=== PATIENT | female | born 1990 | race Caucasian/White ===

== ENCOUNTER → 2016-11-06 | Outpatient (CLI) | payer OTHER ==
[~2016-11-06] MED LIST: PREN-88 PO
[2016-11-06 18:44] LABS: BLOOD UREA NITROGEN 15 mg/dl (7-18); BUN/CREATININE RATIO 17.1 (10-20); CARBON DIOXIDE 25 mmol/L (21-32); CHLORIDE 107 mmol/L (98-107); CHOLESTEROL 114 mg/dl (0-200); CREATININE 0.85 mg/dl (0.60-1.20); GLUCOSE 83 mg/dl (70-99); POTASSIUM 3.6 mmol/L (3.5-5.1); SODIUM 139 mmol/L (136-145); TRIGLYCERIDES 40 mg/dl (0-150); VERY LOW DENSITY LIPOPROT CALC 8 mg/dl
[2016-11-06 18:56] LABS: CHOLESTEROL/HDL RATIO 1.8; HDL CHOLESTEROL 64 mg/dl; LDL CHOLESTEROL CALCULATED 42 mg/dl
== END | disposition home or self-care (01) ==
LOC: C.LABPBG 13:48
PROVIDERS: ATTEND Physician Assistant
DX: Z00.00 Encounter for general adult medical examination without abnormal findings (principal); Z13.21 Encounter for screening for nutritional disorder; R53.83 Other fatigue

== ENCOUNTER → 2016-11-14 | Outpatient (CLI) | payer OTHER | END | disposition home or self-care (01) | LOC: C.PAPS 09:44 | PROVIDERS: ATTEND Physician Assistant | DX: Z12.4 Encounter for screening for malignant neoplasm of cervix (principal) ==

== ENCOUNTER 2017-05-31 17:58 | Emergency (ER) | payer OTHER, BC ==
[~2017-05-31] VITALS: Ht 157.5 cm; Wt 57.8 kg
[2017-05-31 18:09] VITALS: Ht 157.5 cm; Wt 57.8 kg
[2017-05-31] MEDS ORDERED: EFIN1SOL TOP (18:46)
[2017-05-31] MEDS ORDERED: CHOL1000 PO (18:46)
[2017-05-31] MEDS ORDERED: MULT-506 PO (18:46)
[2017-05-31] MEDS ORDERED: ASCA500 PO (18:46)
[2017-05-31] MEDS ORDERED: KETOROLAC TROMETHAMINE 30 MG/ML VIAL IV STA (19:02)
[2017-05-31] MEDS ORDERED: SODIUM CHLORIDE 0.9% 1000ML 1,000 ML IV STA (19:02)
--- NOTE | 2017-05-31 19:06 | EMERGENCY ROOM VISIT NOTE ---
History First contact with patient: 18:44 Chief Complaint: FLANK PAIN Stated Complaint: KIDNEY/BACK PAIN, DIZZINESS, HEADACHE History of Present Illness The patient is a 27 year old female who presents to the Emergency Room with complaints of right flank pain which began approximately 24 hours ago. The patient states the pain seems to be worsening in the right flank, and is now associated with some mild dizziness, lightheadedness, nausea, decreased appetite , and urinary frequency. She states she has had an ongoing headache with the pain as well. The patient denies any recent illness or fever. She states she has noticed some urinary frequency, but denies any hematuria, dysuria, or urinary hesitancy. She states that bending towards the left makes the flank pain on the right worse. She denies any unusual or excessive activity since before the pain began, but she does have 2 small children at home who are 4 and 1-1/2 years old. The patient is currently on her menstrual cycle, and states she is experiencing some abdominal cramping, but is uncertain if she is experiencing any worsening pain unusual for her menstrual cycle. She states the pain feels very deep within the right flank, and she has been taking ibuprofen and Excedrin without any relief. The patient denies a history of kidney stones or urinary tract infections. She denies any pain radiating down into the legs, and denies any paresthesias. She denies any chest pain or dyspnea. The pain did not begin after eating. Review of Systems A complete 10 point review of systems was reviewed with the patient with pertinent positives and negatives as per history of present illness. All else were negative. Past Medical/Surgical History None Social History Smoking Status: Never Smoker Smokeless Tobacco Use: No Alcohol Use: none Drug Use: none Marital Status: in relationship Housing Status: lives with family Occupation Status: employed Current/Historical Medications Scheduled Ascorbic Acid (Vitamin C), 500 MG PO DAILY Cholecalciferol (Vitamin D3), 1,000 INTER.UNIT PO DAILY Cyclobenzaprine Hcl (Flexeril), 5 MG PO TID Efinaconazole (Jublia), 1 DOSE TOP BID Multivitamin (Multivitamin), 1 TAB PO DAILY Physical Exam Vital Signs Date Time Temp Pulse Resp B/P (MAP) Pulse Ox O2 Delivery O2 Flow Rate FiO2 05/31/17 19:15 58 20 100/65 100 05/31/17 18:09 36.9 84 20 137/79 100 Room Air Physical Exam VITALS: Vitals are noted on the nurse's note and reviewed by myself. Vital signs stable. GENERAL: This is a 27-year-old white female, in no acute distress, nondiaphoretic, well-developed well-nourished. SKIN: The skin was without rashes, erythema, edema, or bruising. There is no tenting of the skin. Capillary reflex less than 2 seconds. HEAD: Normocephalic atraumatic. EARS: External auditory canals clear, tympanic membranes pearly allison without erythema or effusion bilaterally. EYES: Pupils equal round and reactive to light and accommodation. Conjunctivae without injection, sclerae without icterus. Extraocular movements intact. NOSE: Patent, turbinates without inflammation or discharge. No sinus tenderness. MOUTH: Mucous membranes moist. Tonsils are not enlarged. Pharynx without erythema or exudate. Uvula midline. Airway patent. Tongue does not deviate. NECK: Supple without nuchal rigidity. No lymphadenopathy. No thyromegaly. Cervical spine is nontender. No JVD. HEART: Regular rate and rhythm without murmurs gallops or rubs. LUNGS: Clear to auscultation bilaterally without wheezes, rales or rhonchi. No dullness to percussion. No retractions or accessory muscle use. ABDOMEN: Positive bowel sounds x 4. Normal tympanic percussion. Mild suprapubic tenderness and right-sided abdominal pain. Soft, otherwise nontender , without masses or organomegaly. Childers sign negative. No guarding or rebound tenderness. Positive CVA tenderness on the right. MUSCULOSKELETAL: No muscle atrophy, erythema, or edema noted. Full range of motion without joint tenderness in all extremities. No tenderness to palpation. Normal gait. Strength 5/5 throughout. NEURO: Patient was alert and oriented to person place and time. Normal sensation to light and sharp touch. Deep tendon reflexes 2+ throughout. No focal neurological deficits. Medical Decision & Procedures ER Provider Diagnostic Interpretation: KUB CLINICAL HISTORY: 27 years-old Female presenting with right flank pain. TECHNIQUE: Single supine view of the abdomen was obtained. COMPARISON: 10/02/2007. FINDINGS: Nonobstructive bowel gas pattern. No gross pneumoperitoneum. Allowing for bowel gas and stool, no calcifications to suggest nephrolithiasis. No calcifications over the courses of the ureters. Osseous structures normal. Lung bases clear. IMPRESSION: 1. No acute intra-abdominal pathology. No radiographic evidence of nephrolithiasis. Electronically signed by: Fox Johnson M.D. 05/31/2017 7:46 PM Dictated Date/Time: 05/31/2017 7:45 PM Laboratory Results 05/31/17 19:05 Red Blood Count 4.58, Mean Corpuscular Volume 88.2, Mean Corpuscular Hemoglobin 30.1, Mean Corpuscular Hemoglobin Concent 34.2, Mean Platelet Volume 10.0, Neutrophils (%) (Auto) 55.0, Lymphocytes (%) (Auto) 38.5, Monocytes (%) (Auto) 5.3, Eosinophils (%) (Auto) 0.8, Basophils (%) (Auto) 0.2, Neutrophils # (Auto) 2.72, Lymphocytes # (Auto) 1.90, Monocytes # (Auto) 0.26, Eosinophils # (Auto) 0.04, Basophils # (Auto) 0.01 05/31/17 19:05 Test 05/31/17 19:02 05/31/17 19:05 Urine Color YELLOW Urine Appearance CLEAR (CLEAR) Urine pH 6.5 (4.5-7.5) Urine Specific Dola 1.005 (1.000-1.030) Urine Protein NEG (NEG) Urine Glucose (UA) NEG (NEG) Urine Ketones 1+ (NEG) Urine Occult Blood NEG (NEG) Urine Nitrite NEG (NEG) Urine Bilirubin NEG (NEG) Urine Urobilinogen NEG (NEG) Urine Leukocyte Esterase NEG (NEG) Urine Test NEG (NEG) White Blood Count 4.94 K/uL (4.8-10.8) Red Blood Count 4.58 M/uL (4.2-5.4) Hemoglobin 13.8 g/dL (12.0-16.0) Hematocrit 40.4 % (37-47) Mean Corpuscular Volume 88.2 fL (80-100) Mean Corpuscular Hemoglobin 30.1 pg (25-34) Mean Corpuscular Hemoglobin Concent 34.2 g/dl (32-36) Platelet Count 224 K/uL (130-400) Mean Platelet Volume 10.0 fL (7.4-10.4) Neutrophils (%) (Auto) 55.0 % Lymphocytes (%) (Auto) 38.5 % Monocytes (%) (Auto) 5.3 % Eosinophils (%) (Auto) 0.8 % Basophils (%) (Auto) 0.2 % Neutrophils # (Auto) 2.72 K/uL (1.4-6.5) Lymphocytes # (Auto) 1.90 K/uL (1.2-3.4) Monocytes # (Auto) 0.26 K/uL (0.11-0.59) Eosinophils # (Auto) 0.04 K/uL (0-0.5) Basophils # (Auto) 0.01 K/uL (0-0.2) RDW Standard Deviation 39.0 fL (36.4-46.3) RDW Coefficient of Variation 12.2 % (11.5-14.5) Immature Granulocyte % (Auto) 0.2 % Immature Granulocyte # (Auto) 0.01 K/uL (0.00-0.02) Anion Gap 8.0 mmol/L (3-11) Est Creatinine Clear Calc Drug Dose 76.2 ml/min Estimated GFR () 105.1 Estimated GFR (Non- 90.7 BUN/Creatinine Ratio 16.2 (10-20) Calcium Level 9.1 mg/dl (8.5-10.1) Total Bilirubin 0.3 mg/dl (0.2-1) Aspartate Amino Transf (AST/SGOT) 17 U/L (15-37) Alanine Aminotransferase (ALT/SGPT) 32 U/L (12-78) Alkaline Phosphatase 43 U/L (45-117) Total Protein 8.3 gm/dl (6.4-8.2) Albumin 4.6 gm/dl (3.4-5.0) Globulin 3.7 gm/dl (2.5-4.0) Albumin/Globulin Ratio 1.3 (0.9-2) Medications Administered Medications (Trade) Dose Ordered Sig/Clint Route Start Time Stop Time Status Last Admin Dose Admin Sodium Chloride 1,000 ml @ 999 mls/hr Q1H1M STAT IV 05/31/17 19:02 05/31/17 20:02 DC 05/31/17 19:13 999 MLS/HR Ketorolac Tromethamine (Toradol Inj) 30 mg NOW STAT IV 05/31/17 19:02 05/31/17 19:03 DC 05/31/17 19:12 30 MG Cyclobenzaprine HCl (FLEXERIL 10MG Home Pack) 1 homepack UD STAT PO 05/31/17 20:03 05/31/17 20:04 DC 05/31/17 20:03 1 HOMEPACK ED Course The patient was seen and evaluated as above. IV access obtained, labs drawn. The patient was given 1 L normal saline solution, 30 mg Toradol for her pain and symptoms. KUB reviewed by myself and radiologist as above. Labs reviewed. The patient was reassessed. She reports moderate improvement in her symptoms. I had a long discussion with the patient at bedside regarding ongoing care. Discharge instructions reviewed, the patient was discharged home in good condition. Medical Decision This is a 27-year-old female patient who presents to the emergency department today complaining of right flank pain with associated urinary frequency, dizziness, lightheadedness, and decreased appetite. The patient states the symptoms have been ongoing for approximately 24 hours. The patient's states the patient had been wrestling around and lifting her son in the air last evening prior to the pain beginning. The patient states she does not recall having pain prior to this incident, but states this pain feels different than on previous pulled muscle she has experienced. Workup here in the emergency department was around negative. KUB did not show any obvious signs of nephrolithiasis. There is no leukocytosis, anemia, thrombocytopenia on CBC. CMP shows no significant renal, hepatic, electrolyte abnormalities. The patient's urinalysis is positive for 1+ ketones, but there is no blood, white blood cells, bacteria, or nitrates. There is no obvious signs of infection. The patient does admit to starting a keto diet recently, which I suspect correlates with the 1+ ketones in the patient's urine. With these findings, I discussed with the patient and her that I suspect a muscular etiology of the patient's symptoms. I did offer her further imaging with CT scan or ultrasound, but after discussing the benefits versus risks and my low suspicion for any positive findings due to the patient's workup and laboratory results, the patient declined further testing and states "I want to go home". Patient's symptoms did improve here in the emergency department with IV Toradol. She will be given a prescription and home pack for cyclobenzaprine to take at home and was advised to get plenty of rest and avoid over exertion over the weekend. The patient was agreeable to this. She was encouraged to follow-up outpatient with her primary care provider. She was given strict return precautions. Etiologies such as renal colic, musculoskeletal, appendicitis, diverticulitis, mesenteric ischemia, aortic pathology, infections, inflammatory bowel disease, PUD, biliary pathology, UTI, as well as others were entertained. Medication Reconcilliation Current Medication List: was personally reviewed by me Blood Pressure Screening Patient's blood pressure: Normal blood pressure Impression Primary Impression: Right flank pain Departure Information Dispostion Home / Self-Care Condition GOOD Prescriptions Cyclobenzaprine Hcl (FLEXERIL) 5 Mg Tab 5 MG PO TID, #15 TAB PRN Prov: Kaylynn Quintero, SUSANNAH 05/31/17 Referrals Carmen Grey DO (PCP) Patient Instructions ED Flank Pain Uncertain Cause, My [facility] Additional Instructions You were seen in the emergency department today for right flank pain. As discussed, all labs and KUB x-ray were negative for acute causes of your pain. I suspect a muscular etiology of your symptoms. Ibuprofen(Motrin, Advil) may be used for fever or pain. Use 600mg every six hours as needed. Take with food. Avoid using more than 2400mg in a 24 hour period. Do not use 2400mg per day for more than three consecutive days without physician direction. Prolonged inappropriate use can lead to stomach upset or ulcers. (AND/OR) Acetaminophen(Tylenol) may be used for fever or pain. Use 1000mg every six hours as needed. Avoid using more than 3000mg in a 24 hour period. You have been prescribed Flexeril (cyclobenzaprine) 1-2 tabs orally, three times per day. Do NOT exceed 30 mg (6 tabs) per day. Take your first dose at bedtime as it can make you drowsy. Always take all medications as prescribed. *Note: Flexeril homepack is 10mg tablets. Take 1/2 to 1 tablet orally as needed. Rx is for 5mg tablets. Use ice and/or heat to help with discomfort. Drink plenty of fluids and stay well-hydrated. Follow-up with your PCP in 2-3 days for re-evaluation of your symptoms. Please monitor for worsening pain, fever, blood in your urine, painful urination , fevers, chills, or other concerning symptoms. If these occur, return immediately to the emergency department.
[2017-05-31 19:18] LABS: BASO % 0.2 %; BASO ABS # 0.01 K/uL (0-0.2); EOS % 0.8 %; EOS ABS # 0.04 K/uL (0-0.5); HEMATOCRIT 40.4 % (37-47); HEMOGLOBIN 13.8 g/dL (12.0-16.0); IG# 0.01 K/uL (0.00-0.02); LYMPH % 38.5 %; MEAN CELL VOLUME 88.2 fL (80-100); MEAN CORPUSCULAR HEMOGLOBIN 30.1 pg (25-34); MEAN CORPUSCULAR HGB CONC 34.2 g/dl (32-36); MONO % 5.3 %; MONO ABS # 0.26 K/uL (0.11-0.59); NEUT ABS # 2.72 K/uL (1.4-6.5); PLATELET COUNT 224 K/uL (130-400); RED CELL DISTRIBUTION WIDTH CV 12.2 % (11.5-14.5); WHITE BLOOD COUNT 4.94 K/uL (4.8-10.8)
[2017-05-31 19:42] LABS: ALBUMIN 4.6 gm/dl (3.4-5.0); CALCIUM 9.1 mg/dl (8.5-10.1); CREATININE 0.87 mg/dl (0.60-1.20); POTASSIUM 3.6 mmol/L (3.5-5.1)
[2017-05-31 19:45] LABS: TOTAL PROTEIN 8.3 gm/dl (6.4-8.2)
--- NOTE | 2017-05-31 19:47 | DIAGNOSTIC IMAGING REPORT ---
KUB CLINICAL HISTORY: 27 years-old Female presenting with right flank pain. TECHNIQUE: Single supine view of the abdomen was obtained. COMPARISON: 10/02/2007. FINDINGS: Nonobstructive bowel gas pattern. No gross pneumoperitoneum. Allowing for bowel gas and stool, no calcifications to suggest nephrolithiasis. No calcifications over the courses of the ureters. Osseous structures normal. Lung bases clear. IMPRESSION: 1. No acute intra-abdominal pathology. No radiographic evidence of nephrolithiasis. Electronically signed by: Fox Johnson M.D. 05/31/2017 7:46 PM Dictated Date/Time: 05/31/2017 7:45 PM
[2017-05-31] MEDS ORDERED: FLEXERIL HOME PACK 10 MG VIAL PO STA (20:03)
[2017-05-31] MEDS ORDERED: CYCL5TAB PO (20:06)
[2017-05-31 20:19] VITALS: BP 100/65; PULSE 58; TEMP 36.9; O2SAT 100
== END 2017-05-31 20:19 | disposition home or self-care (01) ==
LOC: C.EDB 18:00
DX: R10.9 Unspecified abdominal pain (principal)

== ENCOUNTER → 2017-07-03 | Outpatient (CLI) | payer OTHER, BC ==
[~2017-07-03] MED LIST changes: +ASCA500 PO; +CHOL1000 PO; +EFIN1SOL TOP; +MULT-506 PO; -PREN-88 PO
[2017-07-03 17:01] LABS: HEMATOCRIT 35.5 % (37-47); HEMOGLOBIN 12.4 g/dL (12.0-16.0); MEAN CELL VOLUME 87.7 fL (80-100); MEAN CORPUSCULAR HEMOGLOBIN 30.6 pg (25-34); MEAN CORPUSCULAR HGB CONC 34.9 g/dl (32-36); MEAN PLATELET VOLUME 10.1 fL (7.4-10.4); PLATELET COUNT 173 K/uL (130-400); RED CELL DISTRIBUTION WIDTH CV 12.5 % (11.5-14.5); RED CELL DISTRIBUTION WIDTH SD 40.3 fL (36.4-46.3)
[2017-07-03 17:20] LABS: ALBUMIN 4.2 gm/dl (3.4-5.0); BLOOD UREA NITROGEN 11 mg/dl (7-18); CALCIUM 8.7 mg/dl (8.5-10.1); CARBON DIOXIDE 24 mmol/L (21-32); CREATININE 0.69 mg/dl (0.60-1.20); GLUCOSE 74 mg/dl (70-99); POTASSIUM 3.4 mmol/L (3.5-5.1); SODIUM 138 mmol/L (136-145)
[2017-07-03 17:22] LABS: BASO % 0.2 %; BASO ABS # 0.01 K/uL (0-0.2); EOS % 0.7 %; EOS ABS # 0.03 K/uL (0-0.5); LYMPH % 54.6 %; LYMPH ABS # 2.24 K/uL (1.2-3.4); MONO % 6.3 %; MONO ABS # 0.26 K/uL (0.11-0.59); NEUT % 38.2 %; NEUT ABS # 1.56 K/uL (1.4-6.5)
[2017-07-03 17:30] LABS: ALKALINE PHOSPHATASE 42 U/L (45-117); ALT/SGPT 29 U/L (12-78); AST/SGOT 16 U/L (15-37); TOTAL PROTEIN 7.2 gm/dl (6.4-8.2)
== END | disposition home or self-care (01) ==
LOC: C.LABPBG 14:53
PROVIDERS: ATTEND Physician Assistant
DX: R51 Headache (principal)

== ENCOUNTER 2019-04-06 07:14 | Inpatient (IN) ==
[2019-04-06] MEDS ORDERED: OXYTOCIN 30 UNITS/500 ML BAG IV PRN ×3 (08:31→19:03)
--- NOTE | 2019-04-06 08:36 | History & Physical Report ---
Date of Service April 06, 2019 Assessment & Plan (1) : PROM, discussed starting pitocin vs conservative management. Patient elects for pitocin. She will likely want an epidural. History of Present Illness Chief Complaint: leaking fluid Primary Care Provider: NO PCP 29yo @ 38 06/06 with gush of clear fluid at 0530 this morning. Having rare ctx. + movement. No vaginal bleeding. uncomplicated. Allergies Allergy/AdvReac Type Severity Reaction Status Date / Time Penicillins Allergy Intermediate rash Verified 04/03/19 16:18 Home Medications Home Medications Medication Instructions Recorded Confirmed Type docusate sodium 100 mg PO DAILY 10/14/18 04/03/19 History prenat.vits,gayathri,[id number] 1 tab PO DAILY 10/15/18 04/03/19 History polyethylene glycol 3350 PO 01/02/19 04/03/19 History ferrous sulfate PO 02/19/19 04/03/19 History ondansetron HCl PO 04/03/19 04/03/19 History Patient History Medical History (Updated 03/24/19 @ 09:15 by Israel Fallon Jr, MD, FACOG) Abnormal EKG (Inactive) Dehydration (Inactive) Encounter for examination following treatment at hospital (Inactive) Encounter for anatomic survey Fatigue (Inactive) Headache (Inactive) History of anemia Hyperemesis gravidarum (Resolved) (Acute) Surgical History (Updated 11/01/18 @ 16:00 by Destinee Chavez) Breast enlargement H/O oral surgery History of wisdom tooth extraction Family History (Updated 11/01/18 @ 16:07 by Destinee Chavez) Father Environmental allergies Hypertension Sister No problems noted. Son Environmental allergies Grandfather Environmental allergies Hypertension Myocardial infarction Aunt Asthma Gestational diabetes Kidney stone Breast cancer Mother Depression Hypertension Grandmother Gestational diabetes Ovarian cancer Other Anemia Cardiac disorder Endometriosis Heart murmur Hypercholesterolemia Multiple gestation No significant family history Ovarian cyst Prostate cancer Thyroid disease Social History (Updated 11/01/18 @ 16:08 by Destinee Chavez) Preferred Language: Macedonian Beliefs That Will Affect Care: None marital status: Current Living Situation: Spouse and Family Current Living Situation Comment: sons ages 6 and 3 current occupational status: employed Feels Safe at Home: Yes and No Smoking Status: Never smoker Second Hand Exposure: No ; Hx Alcohol Use: No Hx Substance Use: No Review of Systems All systems reviewed & are unremarkable except as noted in HPI & below Physical Exam Physical Exam: FHT Cat 1 [place] Rare SVE: 4-5/50/-2 Nitrizine +, actively leaking fluid, grossly ruptured Constitutional: WD/WN, vitals as above Respiratory: normal respiratory effort, lungs clear to auscultation no respiratory distress Cardiovascular: Rate/Rhythm: regular rate and regular rhythm Gastrointestinal (Abdomen): Inspection/Auscultation: abdomen normal to inspection Percussion/Palpation: abdomen soft; abdomen nontender Gravid. No s/s chorio or abruption. Skin: no rashes, warm and dry Psychiatric: A+Ox3, euthymic affect Results & Data Vital Signs (Past 12 Hours) Vital Signs Temp Pulse Resp BP 04/06/19 07:22 88 128/65 04/06/19 07:19 36.7 C 18 (1) Weeks of gestation: 13 weeks Qualified Code(s): Z3A.13 - 13 weeks gestation of
[2019-04-06] MEDS: LACTATED RINGER'S 1,000 ML IV PRN ×3 (08:50→18:13)
[2019-04-06 09:10] LABS: Hematocrit (blood only) 32.6 % (37-47); Hemoglobin 10.9 g/dL (12.0-16.0); Mean Corpuscular Hemoglobin 32.2 pg (25-34); Mean Corpuscular Volume 96.2 fL (80-100); Mean Platelet Volume 9.9 fL (7.4-10.4); Platelet Count 150 K/uL (130-400); RDW Coefficient of Variation 13.1 % (11.5-14.5); RDW Standard Deviation 45.1 fL (36.4-46.3); Red Blood Count 3.39 M/uL (4.2-5.4); White Blood Count 9.41 K/uL (4.8-10.8)
[2019-04-06 09:11] LABS: Mean Corpuscular Hgb Conc 33.4 g/dL (32-36)
--- NOTE | 2019-04-06 13:26 | Obstetrical Progress Note ---
Date of Service April 06, 2019 Subjective Comfortable, but contractions have increased with pitocin. Feels frustrated because active labor has not kicked in yet. FHT Cat 1 [place] Q 2 SVE: -/0 Discussed that baby has dropped in pelvis, this is promising. Anticipate . Results & Data Vital Signs (Past 12 Hours) Vital Signs Temp Pulse Resp BP 04/06/19 12:06 90 109/62 04/06/19 12:05 18 04/06/19 11:04 81 103/59 L 04/06/19 10:02 88 114/66 04/06/19 09:29 20 04/06/19 09:00 20 04/06/19 07:22 88 128/65 04/06/19 07:19 36.7 C 18 PG Care Time/CCT Total # of Minutes Spent Total Time Spent with Patient: Total time spent is greater than 50% in coordination of care (as documented) at patient's floor/unit and/or counseling patient:
[2019-04-06] MEDS ORDERED: ePHEDrine sulfate 50 MG/ML AMP ONE (16:59)
[2019-04-06] MEDS ORDERED: fentaNYL citrate 100 MCG/2 ML VIAL ONE (16:59)
[2019-04-06] MEDS ORDERED: BUPIVACAINE 0.25% 30 ML VIAL ONE (16:59)
[2019-04-06] MEDS ORDERED: fentaNYL 2MCG/ML ROPIV 1.25MG/ML 100 ML BAG EPI ONE (17:00)
--- NOTE | 2019-04-06 17:15 | Anesthesiology Consultation ---
Date of Service April 06, 2019 Assessment & Plan Chart Review Chart Review: Acceptable Risk for Surgery, Patient NOT seen in Pre Admission Testing and Acceptable Risk for Labor Epidural Consults Requested none ASA ASA2 Proposed Anesthesia Anesthesia Type: General and Labor Epidural Risk / Benefits Reviewed With: PT / POA / Parent / Guardian, Accepts Plan and Informed Consent Obtained History Height/Weight Height: 5 ft 2.5 in Weight: 80.649 kg Allergies Allergy/AdvReac Type Severity Reaction Status Date / Time Penicillins Allergy Intermediate rash Verified 04/06/19 09:51 Medications Home Medications Medication Instructions Recorded Confirmed Last Taken docusate sodium 100 mg PO DAILY 10/14/18 04/06/19 Unknown prenat.vits,gayathri,[id number]-brjtz 1 tab PO DAILY 10/15/18 04/06/19 04/05/19 Active Medications Generic Name Dose Route Start Last Admin Trade Name Freq PRN Reason Stop Dose Admin Lactated Ringer's 1,000 mls @ 125 mls/hr 04/06/19 08:31 04/06/19 16:51 Lr IV 04/08/19 08:30 999 mls/hr .Q8H PRN Infusion L&D Protocol Protocol Oxytocin 30 units in 500 mls @ 13 mls/hr 04/06/19 08:31 04/06/19 16:52 Pitocin IV 05/06/19 08:30 0.78 units/hr .Q24H PRN 13 mls/hr Labor Induction/Augmentation Titration Protocol 0.78 UNITS/HR NPO Date Last Intake of Fluids: 04/06/19 Time Last Intake of Fluids: 16:00 Date Last Intake of Solids: 04/05/19 Time Last Intake of Solids: 23:00 Past Medical History Medical History Abnormal EKG (Inactive) Dehydration (Inactive) Encounter for examination following treatment at hospital (Inactive) Encounter for anatomic survey Fatigue (Inactive) Headache (Inactive) History of anemia Hyperemesis gravidarum (Resolved) (Acute) Exercise / Class Metabolic Activity II 4-5 Yardwork/Stairs/Walk up hill Past Family History Family History Father Environmental allergies Hypertension Sister No problems noted. Son Environmental allergies Grandfather Environmental allergies Hypertension Myocardial infarction Aunt Asthma Gestational diabetes Kidney stone Breast cancer Mother Depression Hypertension Grandmother Gestational diabetes Ovarian cancer Other Anemia Cardiac disorder Endometriosis Heart murmur Hypercholesterolemia Multiple gestation No significant family history Ovarian cyst Prostate cancer Thyroid disease Past Surgical History Surgical History Breast enlargement H/O oral surgery History of wisdom tooth extraction Past Anesthesia History No Hx of Anesthesia Complications and No Family Hx of Anesthesia Complications History of PONV No Hx of PONV and No Hx of Motion Sickness Social History Smoking Status: Never smoker Hx Alcohol Use: No Hx Substance Use: No Physical Exam Vital Signs Last Vital Signs Temp 36.8 C 04/06/19 17:03 Pulse 79 04/06/19 16:51 Resp 18 04/06/19 17:03 BP 107/62 04/06/19 16:51 Constitutional + obese ENMT Mouth: no dentition abnormality Thyromental Distance: < 3.5 Finger Breadths Mallampati Class: II Neck normal visual inspection and trachea midline; neck extension not limited Respiratory normal respiratory effort Auscultation: lungs clear to auscultation bilaterally Cardiovascular Rate/Rhythm: regular rate and regular rhythm Heart Sounds: no murmur Musculoskeletal Spine: lumbar spine normal to inspection; normal cervical ROM Neurologic moves all extremities Motor/Sensory: no sensory deficit Psychiatric Orientation: alert and oriented x 3 Testing Laboratory Results 04/06/19 08:56
[2019-04-06] MEDS ORDERED: fentaNYL 2MCG/ML ROPIV 1.25MG/ML 100 ML BAG EPI PRN (17:47)
[2019-04-06] MEDS ORDERED: NALOXONE HCL 1 MG in SODIUM CHLORIDE 0.9% 1000ML 1,000 ML IV PRN (17:47)
[2019-04-06] MEDS ORDERED: ePHEDrine sulfate 50 MG/ML AMP IV PRN (17:47)
[2019-04-06] MEDS ORDERED: PROMETHAZINE HCL 25 MG in SODIUM CHLORIDE 0.9% 50 ML IV PRN (17:47)
[2019-04-06] MEDS ORDERED: NALBUPHINE HCL INJ 10 MG/ML AMP IV PRN (17:47)
[2019-04-06] MEDS ORDERED: ONDANSETRON INJ 2 MG/ML 2 ML VIAL IV PRN (17:47)
[2019-04-06] MEDS ORDERED: NALOXONE HCL 0.4 MG/1 ML VIAL/CARP IV PRN (17:47)
[2019-04-06] MEDS ORDERED: DiphenhydrAMINE HCL 50 MG/ML VIAL IV PRN (17:47)
--- NOTE | 2019-04-06 18:14 | Obstetrical Progress Note ---
Date of Service April 06, 2019 Subjective Comfortable with epidural now. FHT Cat 1, with early decels [place] Q 2 SVE 7/100/0. Bloody show. Results & Data Vital Signs (Past 12 Hours) Vital Signs Temp Pulse Resp BP Pulse Ox 04/06/19 18:12 90 98 04/06/19 18:11 87 108/57 L 04/06/19 18:09 84 109/58 L 04/06/19 18:07 94 H 105/56 L 04/06/19 18:05 88 109/60 04/06/19 18:03 82 109/61 04/06/19 18:02 89 126/79 98 04/06/19 17:59 96 H 105/64 04/06/19 17:57 85 104/63 100 04/06/19 17:55 94 H 101/59 L 04/06/19 17:53 93 H 100/57 L 04/06/19 17:52 92 H 99 04/06/19 17:51 90 108/55 L 04/06/19 17:50 100 H 109/56 L 04/06/19 17:47 93 H 93/53 L 97 04/06/19 17:45 88 91/53 L 04/06/19 17:43 86 91/53 L 04/06/19 17:42 97 H 98/56 L 96 04/06/19 17:39 91 H 109/62 04/06/19 17:37 92 H 108/62 97 04/06/19 17:32 98 H 97 04/06/19 17:27 112 H 99 04/06/19 17:22 99 H 99 04/06/19 17:17 109 H 100 04/06/19 17:16 18 04/06/19 17:03 36.8 C 18 04/06/19 16:51 79 107/62 04/06/19 15:36 18 04/06/19 14:46 92 H 122/63 04/06/19 14:45 36.7 C 18 04/06/19 14:00 18 04/06/19 13:24 18 04/06/19 12:06 90 109/62 04/06/19 12:05 18 04/06/19 11:04 81 103/59 L 04/06/19 10:02 88 114/66 01/05/20 09:29 20 04/06/19 09:00 20 04/06/19 07:22 88 128/65 04/06/19 07:19 36.7 C 18 PG Care Time/CCT Total # of Minutes Spent Total Time Spent with Patient: Total time spent is greater than 50% in coordination of care (as documented) at patient's floor/unit and/or counseling patient:
--- NOTE | 2019-04-06 18:54 | Delivery Summary ---
Vaginal Delivery Summary Date of Service April 06, 2019 Vaginal Delivery Summary Vaginal Delivery Summary: Pre-delivery diagnoses: 29yo @ 38 3/7, PROM Post-delivery diagnoses: same Procedure: spontaneous vaginal delivery, repair of 1st degree perineal laceration Surgeon: Gretchen lAex DO Complications: none Findings: Viable female . Apgars: 8/10. Weight pending, please see nursery records. Estimated blood loss: 300ml Description of delivery: The patient progressed to complete and with epidural anesthesia. She then pushed once. She spontaneously vaginally delivered a viable from the cephalic presentation. The head delivered in MARTA position. The anterior shoulder delivered, followed by the posterior shoulder, followed by the body. The baby was placed on mother's abdomen and a spontaneous cry was heard. Delayed cord clamping was employed, and the cord was doubly clamped and cut. Cord blood was obtained for public donation, and a small amount of cord blood was obtained for lab. The placenta was delivered spontaneously intact with a 3-vessel cord. The uterus and vagina were swept of clots and debris. IV pitocin was given. The uterus became firm. The cervix, vagina, and perineum were inspected and a small 1st degree perineal laceration was noted and repaired with 3-0 vicryl in standard fashion. Excellent hemostasis was observed. The mother and baby are recovering in stable and good condition in the room. Sponge, needle, and instrument counts were correct x 2. Gretchen Alex DO FACG
[2019-04-06] MEDS ORDERED: DIPHTHERIA/TETANUS/PERTUSSIS 0.5 ML SYR/VIAL IM ONE (19:03)
[2019-04-06] MEDS ORDERED: bisacodyL 10 MG SUPP PR PRN (19:03)
[2019-04-06] MEDS ORDERED: ACETAMINOPHEN 325 MG TAB PO PRN (19:03)
[2019-04-06] MEDS ORDERED: BENZOCAINE 20% AER SPR 82.5 GM CAN EXT PRN (19:03)
[2019-04-06] MEDS ORDERED: OXYCODONE/ACETAMINOPHEN 5mg/325mg TAB PO PRN (19:03)
[2019-04-06] MEDS ORDERED: HYDROCORTISONE ACETATE 25 MG SUPP PR PRN (19:03)
[2019-04-06] MEDS ORDERED: SUPERCREAM 0.870% 15 GM JAR EXT PRN (19:03)
--- NOTE | 2019-04-06 19:52 | Anesthesia Procedure Note ---
Date of Service April 06, 2019 Anesthesia Post Epidural Note Vital Signs Vital Signs: Temp Pulse Resp BP Pulse Ox 36.8 C 82 18 98/53 L 98 04/06/19 17:03 04/06/19 19:49 04/06/19 17:16 04/06/19 19:49 04/06/19 18:37 Notes Mental Status: alert / awake / arousable Nausea / Vomiting: adequately controlled Pain: adequately controlled Airway Patency, RR, SpO2: stable & adequate BP & HR: stable & adequate Hydration State: stable & adequate Neuraxial Anesthesia: was administered and sensory block is resolving Anesthetic Complications: no major complications apparent Epidural: Removed without complications and With tip intact
[2019-04-06] MEDS ORDERED: DOCUSATE SODIUM 100 MG CAP PO SCH (21:00)
[2019-04-06] MEDS: IBUPROFEN 600 MG TAB PO PRN (22:15)
[2019-04-07] MEDS: IBUPROFEN 600 MG TAB PO PRN ×4 (03:32→16:38)
[2019-04-07 06:47] LABS: Hematocrit (blood only) 30.5 % (37-47); Hemoglobin 10.5 g/dL (12.0-16.0)
--- NOTE | 2019-04-07 06:48 | Obstetrical Progress Note ---
Date of Service April 07, 2019 Assessment & Plan (1) : PPD#1 doing well, would like to go home today. Delivered at 6:45p last night. DC instructions reviewed, followup PP 6w. Weeks of gestation: 13 weeks Qualified Code(s): Z3A.13 - 13 weeks gestation of Subjective Ambulation: ambulating normally Voiding: no voiding problems Diet Tolerance:: regular diet Lochia:: Moderate PPD#1 doing well. Review of Systems All systems reviewed & are unremarkable except as noted in HPI & below Physical Exam Constitutional WD/WN, vitals as above no acute distress Respiratory normal respiratory effort Cardiovascular Rate/Rhythm: regular rate and regular rhythm Gastrointestinal (Abdomen) Inspection/Auscultation: abdomen normal to inspection; abdomen not distended Percussion/Palpation: abdomen soft Genitourinary OB Exam Abdomen: + fundal height Fundus: + firm; not tender Results & Data Vital Signs (Past 12 Hours) Vital Signs Temp Pulse Pulse Resp BP BP 04/07/19 04:00 36.6 C 79 17 103/66 04/07/19 00:15 36.8 C 93 H 20 101/64 04/06/19 21:55 37.0 C 90 20 109/69 04/06/19 21:11 92 H 111/57 L 04/06/19 20:56 90 116/59 L 04/06/19 20:41 83 106/56 L 04/06/19 20:27 97 H 113/68 04/06/19 20:15 36.4 C L 04/06/19 20:11 82 96/52 L 04/06/19 19:56 83 96/54 L 04/06/19 19:49 82 98/53 L 04/06/19 19:42 198/119 H 04/06/19 19:11 93 H 114/65 04/06/19 18:57 88 106/60
[2019-04-07] MEDS ORDERED: PRENATAL VITAMIN 1 TAB PO SCH (08:00)
[2019-04-07] MEDS ORDERED: bisacodyL 5 MG TABEC PO SCH (20:00)
== END 2019-04-07 19:25 | disposition home or self-care (01) | DRG 807 ==
LOC: OPB 07:14 → 4S1 07:16 → 4S2 21:35

== ENCOUNTER 2020-12-21 20:19 | Inpatient (IN) ==
[2020-12-21] MEDS ORDERED: OXYTOCIN 30 UNITS/500 ML BAG IV PRN ×2 (21:16→22:00)
[2020-12-21] MEDS ORDERED: LACTATED RINGER'S 1,000 ML IV PRN (21:16)
[2020-12-21 22:11] LABS: Hematocrit (blood only) 32.7 % (37-47); Mean Corpuscular Hemoglobin 31.5 pg (25-34); Mean Corpuscular Hgb Conc 33.6 g/dL (32-36); Mean Corpuscular Volume 93.7 fL (80-100); Mean Platelet Volume 10.2 fL (7.4-10.4); Platelet Count 172 K/uL (130-400); RDW Coefficient of Variation 13.3 % (11.5-14.5); RDW Standard Deviation 45.9 fL (36.4-46.3); Red Blood Count 3.49 M/uL (4.2-5.4); White Blood Count 8.98 K/uL (4.8-10.8)
[2020-12-22] MEDS ORDERED: SUPERCREAM 0.870% 15 GM JAR EXT PRN (02:02)
[2020-12-22] MEDS ORDERED: oxyCODONE/ACETAMINOPHEN 5mg/325mg TAB PO PRN (02:02)
[2020-12-22] MEDS ORDERED: ACETAMINOPHEN W/CODEINE #3 1 TAB PO PRN (02:02)
[2020-12-22] MEDS ORDERED: METHYLERGONOVINE MALEATE 0.2 MG/ML AMP IM ONE (02:02)
[2020-12-22] MEDS ORDERED: OXYTOCIN 30 UNITS/500 ML BAG IV PRN (02:02)
[2020-12-22] MEDS ORDERED: HYDROCORTISONE ACETATE 25 MG SUPP PR PRN (02:02)
[2020-12-22] MEDS ORDERED: DIPHTHERIA/TETANUS/PERTUSSIS 0.5 ML SYR/VIAL IM ONE (02:02)
[2020-12-22] MEDS ORDERED: BENZOCAINE 20% AER SPR 82.5 GM CAN EXT PRN (02:02)
[2020-12-22] MEDS ORDERED: bisacodyL 10 MG SUPP PR PRN (02:02)
[2020-12-22] MEDS ORDERED: METHYLERGONOVINE MALEATE 0.2 MG/ML AMP ONE (02:13)
--- NOTE | 2020-12-22 02:27 | Delivery Summary ---
She is a 4, para 4, blood type is O positive, group B strep negative, due date 12/26/2020. S he was admitted at 39 weeks 3 days. On admission, her cervix was 5 cm dilated. She was having a lot of pelvic pain and discomfort. The baby's estimated weight was on the large side and she requested induction. When she arrived, she was 5+ cm having some contractions, which she did not feel. She was started on Pitocin. She had a good regular pattern about every 2-3 minutes. Membranes were rupture d surgically. Fluid was clear. We continued the Pitocin. She went up and delivered unmedicated, we nt to full dilatation with about 4 pushes, pushed out a live female infant via direct occiput anterio r position over an intact perineum. was suctioned thoroughly through the mouth and the nose. Shoulders were delivered without difficulty. Cord was allowed to pulse for a minute while the infan t was held below the placenta, then it was stripped and the cord was clamped and cut by the father. Cord blood was taken. With IV Pitocin running, the placenta was removed intact and we also gave her a shot of 0.2 mg of Methergine IM. Uterus contracted nicely. Hemostasis was good. Inspection of th e perineum revealed no lacerations at all. Estimated blood loss was 200 mL. Job ID: [id number]
[2020-12-22] MEDS: IBUPROFEN 600 MG TAB PO PRN ×3 (02:46→16:26)
[2020-12-22] MEDS: ACETAMINOPHEN 325 MG TAB PO PRN ×2 (05:23→12:12)
[2020-12-22] MEDS: PRENATAL VITAMIN 1 TAB PO SCH (08:21)
[2020-12-22] MEDS: DOCUSATE SODIUM 100 MG CAP PO SCH ×2 (08:21→19:51)
[2020-12-22 08:44] VITALS: O2SAT 97
[2020-12-23] MEDS: IBUPROFEN 600 MG TAB PO PRN ×2 (00:03→08:10)
[2020-12-23 06:11] LABS: Hematocrit (blood only) 26.1 % (37-47); Hemoglobin 8.5 g/dL (12.0-16.0); Mean Corpuscular Hemoglobin 31.6 pg (25-34); Mean Corpuscular Hgb Conc 32.6 g/dL (32-36); Platelet Count 153 K/uL (130-400); Red Blood Count 2.69 M/uL (4.2-5.4); White Blood Count 7.95 K/uL (4.8-10.8)
[2020-12-23] MEDS: PRENATAL VITAMIN 1 TAB PO SCH (08:10)
[2020-12-23] MEDS: DOCUSATE SODIUM 100 MG CAP PO SCH (08:10)
[2020-12-23 08:45] VITALS: BP 102/67; PULSE 83; TEMP 97.3
--- NOTE | 2020-12-23 09:14 | Obstetrical Progress Note ---
Date of Service December 23, 2020 Assessment & Plan Admission and Anticipated Discharge Date Admission Date: December 21, 2020 Subjective abdomen soft and non tender no calf tenderness ambulating well vaginal bleeding scant hgb 8.5 Results & Data ([facility]) Vital Signs (Past 12 Hours) Vital Signs Temp Pulse Resp BP Pulse Ox 12/23/20 08:41 36.3 C L 83 18 102/67 12/22/20 23:30 36.7 C 76 16 102/69 97
[2020-12-23] MEDS ORDERED: bisacodyL 5 MG TABEC PO SCH (20:00)
== END 2020-12-23 11:05 | disposition home or self-care (01) | DRG 807 ==
LOC: 4S1 20:45 → 4S2 12-22 05:18
DX: O62.3 Precipitate labor; Z3A.39 39 weeks gestation of pregnancy; Z37.0 Single live birth

== ENCOUNTER 2023-05-05 12:48 | Inpatient (IN) ==
[2023-05-05] MEDS ORDERED: LACTATED RINGER'S 1,000 ML IV PRN (13:41)
[2023-05-05] MEDS ORDERED: LIDOCAINE 1% LOCAL 20 ML VIAL INFIL PRN (13:41)
[2023-05-05] MEDS ORDERED: OXYTOCIN 30 UNITS/NSS 30 UNITS/500 ML BAG IV PRN ×3 (13:41→18:45)
[2023-05-05] MEDS ORDERED: SODIUM CHLORIDE 0.9% 250 ML IV PRN (13:55)
[2023-05-05 14:56] LABS: Hematocrit (blood only) 30.6 % (37.0-47.0); Hemoglobin 10.3 g/dl (12.0-16.0); Mean Corpuscular Hemoglobin 31.5 pg (25.0-34.0); Mean Corpuscular Hgb Conc 33.7 g/dL (32.0-36.0); Mean Corpuscular Volume 93.6 fL (80.0-100.0); Mean Platelet Volume 10.7 fL (9.4-12.4); Platelet Count 156 K/uL (130-400); RDW Coefficient of Variation 12.8 % (11.5-14.5); RDW Standard Deviation 43.9 fL (36.4-46.3); Red Blood Count 3.27 M/uL (4.20-5.40); White Blood Count 7.25 K/ul (4.8-10.8)
[2023-05-05] MEDS ORDERED: METHYLERGONOVINE MALEATE 0.2 MG/ML AMP ONE (18:37)
[2023-05-05] MEDS ORDERED: miSOPROStoL 200 MCG TAB ONE (18:40)
[2023-05-05] MEDS ORDERED: ACETAMINOPHEN 325 MG TAB PO PRN (18:45)
[2023-05-05] MEDS ORDERED: oxyCODONE/ACETAMINOPHEN 5mg/325mg TAB PO PRN (18:45)
[2023-05-05] MEDS ORDERED: BENZOCAINE 20% SPRY 85 APPLN/85 GM CAN EXT PRN (18:45)
[2023-05-05] MEDS ORDERED: miSOPROStoL 200 MCG TAB PR ONE (18:45)
[2023-05-05] MEDS ORDERED: bisacodyL 10 MG SUPP PR PRN (18:45)
[2023-05-05] MEDS ORDERED: ACETAMINOPHEN W/CODEINE #3 1 TAB PO PRN (18:45)
[2023-05-05] MEDS ORDERED: HYDROCORTISONE ACETATE 25 MG SUPP PR PRN (18:45)
[2023-05-05] MEDS ORDERED: METHYLERGONOVINE MALEATE 0.2 MG/ML AMP IM ONE (18:45)
--- NOTE | 2023-05-05 18:52 | Delivery Summary ---
Vaginal Delivery Summary Date of Service May 05, 2023 Vaginal Delivery Summary Patient has been followed in our office for care and delivery. She is well dated with a first trimester ultrasound. She comes in in active labor at 39 weeks and 4 days. She is having sporadic contractions cervix is dilated 5+ centimeters. She was given IV Pitocin. Established irregular labor pattern. Did not desire epidural anesthesia. Went to full dilatation pushed out a live male infant via direct occiput anterior position over an intact perineum. Is a very small laceration at 6:00. This was infiltrated with local with epinephrine. A deep suture of 2-0 Vicryl was placed. And a running suture of 2-0 Vicryl was used to approximate the skin edges. Following this bimanual exam removed of a lot of clots from the uterine cavity. She was given IM Methergine. And rectal Cytotec 800 mcg. Uterus contracted nicely estimated blood loss was approximately 250 cc.
[2023-05-05] MEDS: IBUPROFEN 600 MG TAB PO PRN (19:10)
[2023-05-05] MEDS: DOCUSATE SODIUM 100 MG CAP PO SCH (20:49)
[2023-05-06 06:34] LABS: Hemoglobin 10.2 g/dl (12.0-16.0); Mean Platelet Volume 10.9 fL (9.4-12.4); Platelet Count 132 K/uL (130-400); RDW Coefficient of Variation 12.7 % (11.5-14.5); RDW Standard Deviation 43.5 fL (36.4-46.3); Red Blood Count 3.19 M/uL (4.20-5.40); White Blood Count 10.09 K/ul (4.8-10.8)
[2023-05-06] MEDS ORDERED: PRENATAL VITAMIN 1 TAB PO SCH (08:00)
[2023-05-06] MEDS: DOCUSATE SODIUM 100 MG CAP PO SCH (08:31)
[2023-05-06] MEDS: IBUPROFEN 600 MG TAB PO PRN (08:31)
[2023-05-06] MEDS ORDERED: DIPHTHER/TETAN/PERTUS Vaccine (Tdap, Adol/Adult) 0.5mL IM ONE (09:00)
--- NOTE | 2023-05-06 09:16 | Obstetrical Progress Note ---
Date of Service May 06, 2023 Assessment & Plan Admission and Anticipated Discharge Date Admission Date: May 05, 2023 Subjective abdomen soft and non tender no calf tenderness ambulating well vaginal bleeding scant hgb 10.2 Results & Data Vital Signs (Past 12 Hours) Vital Signs Temp Pulse Resp BP Pulse Ox O2 Del Method 05/06/23 08:15 36.5 C 71 16 107/71 Room Air 05/06/23 04:15 36.6 C 75 16 103/67 97 Room Air 05/05/23 23:00 36.8 C 68 16 96 Room Air 05/05/23 21:35 37.0 C 89 16 114/70 95 Room Air
[2023-05-06] MEDS ORDERED: bisacodyL 5 MG TABEC PO SCH (20:00)
== END 2023-05-06 20:35 | disposition home or self-care (01) | DRG 807 ==
LOC: OPB 12:48 → 4S1 12:52 → 4E2 21:23